=== PATIENT | female | born 1990 | race African-American/Black ===

== ENCOUNTER 2017-02-02 09:09 | Emergency (ER) | payer SELFPAY ==
[2017-02-02 09:25] LABS: Bilirubin Negative (Negative); Blood, Urine Negative (Negative); Glucose, Urine (Dipstick) Negative (Negative); Ketone, Urine Negative (Negative); Nitrite Negative (Negative); Protein, Urine (Dipstick) Trace mg/dL (Neg-Trace); Urobilinogen 0.2 mg/dL (0.2-1.0)
== END 2017-02-02 11:42 | disposition home or self-care (01) ==
LOC: SCSER 09:09
DX: N76.0 Acute vaginitis (principal)
CPT/HCPCS: 81003; 87086; 87480; 87491; 87510; 87591; 87660; 99283

== ENCOUNTER 2017-04-20 10:17 | Emergency (ER) | payer SELFPAY | END 2017-04-20 11:45 | disposition home or self-care (01) | LOC: SCSER 10:17 | DX: B34.9 Viral infection, unspecified (principal) | CPT/HCPCS: 99283 ==